=== PATIENT | female | born 1945 | race Caucasian/White ===

== ENCOUNTER 2024-04-01 16:10 | Inpatient (IN) | payer OTHER ==
[~2024-04-01] VITALS: Ht 165.1 cm; Wt 112.5 kg
[2024-04-01 16:10] VITALS: O2SAT 98
[~2024-04-01 16:10] MED LIST: ALBUTEROL; AMIO200T62 PO; APIX5TAB PO; ATOR20TA PO; BIOF1TAB PO; FURO20TA8 PO; HYDR25TA32 PO; LOSA25TA43 PO; LOTC TP; METO25TA PO; POTA10TA70 PO; VIT1CAPS9 PO; [UNRECOGNIZED DRUG - CODE] PO
[2024-04-01 16:18] VITALS: BP 136/80; PULSE 102; RESP 16; TEMP 98.6; O2SAT 98
[2024-04-01 17:05] LABS: BASOPHILS % (AUTO) 0.2 % (0.0-2.0); EOSINOPHILS # (AUTO) 0.1 K/uL (0-0.4); EOSINOPHILS % (AUTO) 0.8 % (0.0-4.0); HEMATOCRIT 36.5 % (36-48); HEMOGLOBIN 11.9 g/dL (12.0-16.0); LYMPHOCYTES # (AUTO) 0.4 K/uL (2.5-16.5); LYMPHOCYTES % (AUTO) 4.9 % (20.5-51.1); MEAN CORPUSCULAR HEMOGLOBIN 31 pg (27-31); MEAN CORPUSCULAR HGB CONC 33 g/dL (33-37); MEAN CORPUSCULAR VOLUME 94.7 fL (80-94); MONOCYTES # (AUTO) 0.5 K/uL (0.8-1.0); MONOCYTES % (AUTO) 6.9 % (1.7-9.3); NEUTROPHILS # (AUTO) 6.9 K/uL (1.8-7.7); NEUTROPHILS % (AUTO) 87.2 % (42.2-75.2); PLATELET COUNT (AUTO) 168 K/uL (140-450); RED BLOOD CELL COUNT(AUTO) 3.85 MIL/uL (4.20-5.40); RED CELL DISTRIBUTION WIDTH 18.1 % (11.6-13.7)
[2024-04-01] MEDS: KETOROLAC 30 MG/ML VIAL IVP ONE (17:19)
[2024-04-01 17:20] LABS: ANION GAP 12.8 (8-16); CARBON DIOXIDE 30.2 mmol/L (21-32); CHLORIDE 102 mmol/L (98-107); CREATININE 1.2 mg/dL (0.6-1.3); GLUCOSE 183 mg/dL (74-106); SODIUM SERUM 141 mmol/L (136-145); UREA NITROGEN, BLOOD 31 mg/dL (7-18)
[2024-04-01] MEDS: ONDANSETRON 4 MG/2 ML VIAL IVP ONE (17:21)
[2024-04-01 17:28] LABS: ALBUMIN 3.4 g/dL (3.4-5.0); BILIRUBIN,DIRECT 0.2 mg/dL (0.0-0.3); TOTAL BILIRUBIN 0.7 mg/dL (0.0-1.0); TOTAL PROTEIN, SERUM 8.5 g/dL (6.4-8.2)
[2024-04-01 17:43] LABS: APPEARANCE,URINE CLEAR (CLEAR); BILIRUBIN,URINE NEGATIVE (NEGATIVE); BLOOD, URINE TRACE-I (NEGATIVE); COLOR,URINE YELLOW (YELLOW); LEUKOCYTE ESTERASE ,URINE NEGATIVE (NEGATIVE); NITRITE, URINE NEGATIVE (NEGATIVE); PROTEIN,URINE NEGATIVE (NEGATIVE); UGLUCOSE NEGATIVE (NEGATIVE); UROBILINOGEN,URINE 0.2 EU/dL (0.2 - 1)
[2024-04-01] MEDS: NACL 0.9% 1,000 ML IV SCH ×2 (17:43→22:19)
[2024-04-01] MEDS ORDERED: ONDANSETRON 4 MG/2 ML VIAL IVP PRN ×2 (21:20→21:45)
[2024-04-01] MEDS ORDERED: NACL 0.9% 1,000 ML IV SCH (21:20)
[2024-04-02] MEDS ORDERED: KETOROLAC 30 MG/ML VIAL IVP PRN (00:45)
[2024-04-02 07:11] LABS: BASOPHILS % (AUTO) 0.4 % (0.0-2.0); EOSINOPHILS # (AUTO) 0.2 K/uL (0-0.4); EOSINOPHILS % (AUTO) 2.6 % (0.0-4.0); HEMATOCRIT 33.2 % (36-48); LYMPHOCYTES # (AUTO) 0.5 K/uL (2.5-16.5); LYMPHOCYTES % (AUTO) 7.9 % (20.5-51.1); MEAN CORPUSCULAR HEMOGLOBIN 31 pg (27-31); MEAN CORPUSCULAR HGB CONC 33 g/dL (33-37); MEAN CORPUSCULAR VOLUME 94.7 fL (80-94); MONOCYTES # (AUTO) 0.6 K/uL (0.8-1.0); MONOCYTES % (AUTO) 9.7 % (1.7-9.3); NEUTROPHILS % (AUTO) 79.4 % (42.2-75.2); PLATELET COUNT (AUTO) 154 K/uL (140-450); RED BLOOD CELL COUNT(AUTO) 3.51 MIL/uL (4.20-5.40); RED CELL DISTRIBUTION WIDTH 17.9 % (11.6-13.7); WHITE BLOOD COUNT (AUTO) 6.4 K/uL (4.8-10.8)
[2024-04-02] MEDS ORDERED: hydrALAZINE 20 MG/ML VIAL IVP PRN (07:45)
[2024-04-02] MEDS ORDERED: LOVENOX 1MG/KG Q12H SUBQ SCH (07:45)
[2024-04-02 08:19] LABS: ALANINE AMINOTRANSFERASE 21 U/L (12-78); ALBUMIN 3.1 g/dL (3.4-5.0); ALKALINE PHOSPHATASE 177 U/L (50-136); ANION GAP 11.2 (8-16); ASPARTATE AMINOTRANSFERASE 19 U/L (15-37); CALCIUM 8.3 mg/dL (8.5-10.1); CARBON DIOXIDE 29.7 mmol/L (21-32); CHLORIDE 106 mmol/L (98-107); CREATININE 1.3 mg/dL (0.6-1.3); GLUCOSE 124 mg/dL (74-106); POTASSIUM 3.9 mmol/L (3.5-5.1); SODIUM SERUM 143 mmol/L (136-145); TOTAL BILIRUBIN 0.9 mg/dL (0.0-1.0); TOTAL PROTEIN, SERUM 7.7 g/dL (6.4-8.2); UREA NITROGEN, BLOOD 35 mg/dL (7-18)
[2024-04-02 08:45] VITALS: PULSE 91; RESP 19; O2SAT 96
[2024-04-02] MEDS: AMIODARONE 200 MG TAB PO SCH (09:00)
[2024-04-02] MEDS ORDERED: PANTOPRAZOLE 40 MG INJ VIAL IVP SCH (09:00)
[2024-04-02] MEDS: ATORVASTATIN 20 MG TAB PO SCH (09:00)
[2024-04-02] MEDS ORDERED: APIXABAN 2.5 MG TAB PO SCH (09:00)
[2024-04-02] MEDS: FUROSEMIDE 20 MG/2 ML VIAL IVP SCH (09:26)
[2024-04-02] MEDS: PANTOPRAZOLE 40 MG INJ VIAL IVP SCH (09:26)
[2024-04-02] MEDS: ENOXAPARIN 120 MG/0.8 ML SYR SUBQ SCH (09:33)
[2024-04-02 16:00] VITALS: BP 140/55; PULSE 67; RESP 19; TEMP 97; O2SAT 97
[2024-04-02 20:00] VITALS: BP 121/68; PULSE 103; PULSE 91; RESP 19; RESP 20; TEMP 97.7; O2SAT 96
[2024-04-03 04:00] VITALS: BP 121/68; PULSE 111; RESP 20; TEMP 97.4; O2SAT 95
[2024-04-03 08:00] VITALS: BP 121/68; PULSE 88; RESP 18; TEMP 97.9; O2SAT 94
[2024-04-03] MEDS: APIXABAN 2.5 MG TAB PO SCH (09:28)
[2024-04-03 11:24] VITALS: BP 140/77; PULSE 88; RESP 18; TEMP 97.9
== END 2024-04-03 13:46 | disposition home or self-care (01) | DRG 395 ==
LOC: MED 16:10 → MMU 21:26 → MED 21:26 → MTU 04-02 06:04
PROVIDERS: ADMIT Student in an Organized Health Care Education/Training Program; ATTEND Student in an Organized Health Care Education/Training Program
PROC: 0D9670Z Drainage of Stomach with Drainage Device, Via Natural or Artificial Opening (ICD-10-PCS; principal; 2024-04-02)
DX: K42.0 Umbilical hernia with obstruction, without gangrene (principal); E11.9 Type 2 diabetes mellitus without complications; I50.9 Heart failure, unspecified; I11.0 Hypertensive heart disease with heart failure; E78.5 Hyperlipidemia, unspecified; I27.20 Pulmonary hypertension, unspecified; I07.1 Rheumatic tricuspid insufficiency; I35.0 Nonrheumatic aortic (valve) stenosis
CPT/HCPCS: 36415; 71045; 74250; 80048; 80053; 80076; 81003; 83690; 84703; 85025; 87081; 96361; 96374; 96375; 99285; C9113; J1650; J1885; J1940; J2405